=== PATIENT | female | born 1955 | race Caucasian/White ===

== ENCOUNTER 2024-07-29 08:54 | Day surgery (SDC) | payer MEDICARE ==
[~2024-07-29] VITALS: Ht 157.5 cm; Wt 65.8 kg
[~2024-07-29 08:54] MED LIST: CLARITIN10 M1 PO; CRESTOR20 MG PO; D32000 UNIT PO; LEVOTHYROXIN50 MC1 PO; LISINOPRIL XX; LISINOPRIL10 MG PO; OMEPRAZOLE DR40 MG; TRELEGY ELLIPTA1 AER; ZITHROMAX250 MG PO
[2024-07-29] MEDS ORDERED: LACTATED RINGER'S 1,000 ML IV ONE (09:17)
[2024-07-29] MEDS ORDERED: FAMOTIDINE 10MG/ML 2ML SDV IV ONE (09:17)
[2024-07-29 10:53] VITALS: BP 130/97
[2024-07-29] MEDS ORDERED: LIDOCAINE HCL 2% 2ML SDV IV ONE (17:53)
[2024-07-29] MEDS ORDERED: PROPOFOL 200 MG/20 ML VIAL IV ONE (17:53)
[2024-07-29] MEDS ORDERED: GLYCOPYRROLATE 0.2 MG/ML IV ONE (17:53)
== END 2024-07-29 11:02 | disposition home or self-care (01) ==
LOC: ENDO 08:54
PROVIDERS: ATTEND Internal Medicine Gastroenterology
PROC: 0DJD8ZZ Inspection of Lower Intestinal Tract, Via Natural or Artificial Opening Endoscopic (ICD-10-PCS; principal; 2024-07-29)
PROC: 0DB98ZX Excision of Duodenum, Via Natural or Artificial Opening Endoscopic, Diagnostic (ICD-10-PCS; 2024-07-29)
PROC: 0DB78ZX Excision of Stomach, Pylorus, Via Natural or Artificial Opening Endoscopic, Diagnostic (ICD-10-PCS; 2024-07-29)
PROC: 0DB48ZX Excision of Esophagogastric Junction, Via Natural or Artificial Opening Endoscopic, Diagnostic (ICD-10-PCS; 2024-07-29)
DX: K29.50 Unspecified chronic gastritis without bleeding (principal); K20.90 Esophagitis, unspecified without bleeding; K44.9 Diaphragmatic hernia without obstruction or gangrene; R15.9 Full incontinence of feces; K64.8 Other hemorrhoids; Z86.0100 Personal history of colon polyps, unspecified